=== PATIENT | male | born 1940 | race African-American/Black ===

== ENCOUNTER 2017-01-23 12:31 | Inpatient (IN) | payer BC ==
--- NOTE | ~2017-01-23 | DS ---
Discharge Summary [facility] [address] [place]. [address] NAME: MARIO SANFORD : 40 STATUS : DIS IN PAT#: [id number] AGE: 76 ADM/REG DATE : 01/23/17 MR#: [id number] REPORT SERV DATE: 01/26/17 DICTATED BY: WILLIS WILLIS DATE: 01/25/17 REPORT STATUS : Draft TRANSCRIBED BY: MODL DATE: 01/25/17 ADMISSION DATE: 01/23/2017 DISCHARGE DATE: 01/25/2017 DISCHARGE DIAGNOSIS: 1. Acute kidney injury with hyperkalemia, present on admission, resolved. The patient does have a baseline chronic kidney disease stage 4 with baseline creatinine of 3.3. The patient's discharge creatinine is 3.0. 2. Uncontrolled diabetes with presenting blood sugar of greater than 500. The patient is newly started on insulin. 3. Prostate cancer, on Lupron. 4. History of cerebrovascular accident. CONSULTS: Nephrology. PROCEDURES: None. HOSPITAL COURSE: This is a 76-year-old gentleman who was admitted to the hospital with uncontrolled diabetes and acute kidney injury. For details, please refer to H and P by Dr. Neville. In summary, the patient was admitted and was given IV fluid resuscitation along with insulin drip for better control of his blood sugars. The patient was able to come off the insulin drip by the second day of the hospital stay. The patient's renal function also improved with IV fluid hydration. The patient presented to the hospital with a creatinine of 4.25 in which his baseline is 3.3. The patient's creatinine on discharge is 3.09. For the uncontrolled diabetes, the patient was not on any insulin prior to admission, but he was started on a long-acting insulin. Diabetic education was provided. The patient will need to follow up as an outpatient to have his diabetes and insulin regimen titrated for better control. For now for simplicity, the patient was started on just a single daily dosing of long-acting insulin. With the basal insulin alone, the patient's blood sugar was fairly well controlled in the low 200s. The patient is now being discharged home with close outpatient followup instructions. DISCHARGE MEDICATIONS: Only change is Lantus or Levemir 10 units subcu daily. Otherwise, no changes. DISPOSITION: Home. FOLLOWUP: 1. Please follow up with PCP in the next one-two weeks. 2. Please follow up with Dr. Asencio, his town manager, in the next one-two weeks. A total of 25 minutes spent in coordinating this patient's discharge. [facility] [place] [address] [place]. [address] NAME: MARIO SANFORD : 40 STATUS : DIS IN PAT#: [id number] AGE: 76 ADM/REG DATE : 01/23/17 MR#: [id number] REPORT SERV DATE: 01/26/17 DICTATED BY: WILLIS WILLIS DATE: 01/25/17 REPORT STATUS : Draft TRANSCRIBED BY: BHANU DATE: 01/25/17 Willis Willis MD / [id number] CC: MD Aman Liao M.D.
--- NOTE | ~2017-01-23 | CN ---
Consultation Report [facility] [address] [place]. [address] NAME: MARIO DODGE : 40 STATUS : ADM IN PAT#: [id number] AGE: 76 ADM/REG DATE : 01/23/17 MR#: [id number] REPORT SERV DATE: 01/24/17 DICTATED BY: DANIEL WILHELM DATE: 01/24/17 REPORT STATUS : Draft TRANSCRIBED BY: MODL DATE: 01/24/17 NEPHROLOGY CONSULTATION DATE OF CONSULTATION: 01/24/2017 REQUESTING PHYSICIAN: Dr. Law. REASON FOR CONSULT: Chronic kidney disease with acute kidney injury. HISTORY OF PRESENT ILLNESS: Mr. Dodge is a pleasant 76-year-old male with stage 4 CKD followed closely in the office of [facility] by Dr. [place] Asencio. Baseline creatinine since 09/2015 has been between 3.4 and 3.9. He was last seen in the office in 11/2016 when creatinine was 3.2. Previous imaging in 08/2015 showed no hydronephrosis with normal PVR and Doppler renal artery ultrasound in 11/2010 showed no renal artery stenosis. He does not have a dialysis access in place. He was admitted overnight in the ER with a several-week history of polyuria, polyphagia, polydipsia, and a 20-pound weight loss. He had an unsteady gait at home and sugars were over 500. His A1c was found to be 14.5%. Yesterday, BUN was 60, creatinine 4.2, potassium 5.7 in the emergency room. UA showed no protein or blood, but significant amount of glucose was noted. Interestingly, he was recently started on Lupron and another medication for his underlying prostate cancer by Urology. He denies overt uremic symptoms. PAST MEDICAL HISTORY: 1. Stage 4 CKD. Baseline creatinine 3.4 to 3.9 without proteinuria. 2. Anemia. 3. Hypertension. 4. COPD. 5. Prostate cancer, status post XRT. 6. Hyperlipidemia. 7. History of stroke. 8. History GI bleed and Na-Hinkle tear. 9. History of L4-5 fusion, 06/2011 with subsequent infection. MEDICATIONS ON ADMISSION: Amlodipine, aspirin, Lipitor, Rocaltrol, Plavix, hydralazine, multivitamin, Bystolic, Protonix, glimepiride 2 mg at bedtime, pioglitazone 30 mg at bedtime. FAMILY HISTORY: Noncontributory to present admission. SOCIAL HISTORY: He is , nonsmoker, retired, and lives in [place]. REVIEW OF SYSTEMS: Significant for events as per HPI with polyuria, polydipsia, polyphagia, weight loss, Consultation Report [place] [id number] [place]. [address] NAME: MARIO DODGE : 40 STATUS : ADM IN PAT#: [id number] AGE: 76 ADM/REG DATE : 01/23/17 MR#: [id number] REPORT SERV DATE: 01/24/17 DICTATED BY: DANIEL WILHELM DATE: 01/24/17 REPORT STATUS : Draft TRANSCRIBED BY: BHANU DATE: 01/24/17 weakness, fatigue, prostate cancer. Denies urinary outlet obstructive symptoms or OTC use of NSAIDs. PHYSICAL EXAMINATION: VITAL SIGNS: Temperature 97.5, pulse 77, respirations 20, blood pressure 145/67, 95% saturation on room air. GENERAL: He is an elderly appearing male, awake, alert, oriented, and cooperative with the exam. Appears chronically ill. Accompanied by . He is in no distress, sitting up in hospital bed. HEENT: Sclerae without icterus. Conjunctivae not injected. Oropharynx is clear. Mucous membranes are dry. No JVD. HEART: Regular rate and rhythm without rub. ABDOMEN: Soft, nontender, nondistended. Bowel sounds present throughout without rebound or guarding. EXTREMITIES: Show no edema. SKIN: Shows no rash. NEURO: Again grossly nonfocal. MUSCULOSKELETAL: Without active tenosynovitis or gout. : Deferred. There is no Hernandez catheter in place. PSYCH: Mood and affect are appropriate. LABORATORY DATA: Sodium 140, potassium 5.1, bicarb 16, anion gap 13, BUN 55, creatinine 3.6, GFR 18, calcium 8.9, albumin 3.8. Troponin and LFTs are normal. White count 5800 with 3.1% eosinophilia, hemoglobin 10.5, platelets 194,000. Chest x-ray showed no active infiltrates. CT scan of the abdomen and pelvis to be performed today without contrast. ASSESSMENT/PLAN: Mr. Dodge has chronic kidney disease, stage 4, baseline creatinine 3.4 to 3.9, now presents with acute kidney injury; azotemia; hyperkalemia; non-anion gap metabolic acidosis; poorly controlled diabetes with A1c 14.5% with weight loss; polyuria; polydipsia; and anemia. Other medical history is as outlined above. Renal function has improved with hydration. I suspect his worsened renal function was likely related to intravascular volume depletion from poorly controlled diabetes. His acidosis is likely related to worsened renal function as well. His hyperkalemia was likely related to acidosis. No overt uremic symptoms at this time. We will not plan on dialysis if renal function remains stable and at baseline. Continue IV fluids. Dose bicarb. Follow up labs this afternoon. Followup renal imaging to be performed. Family updated in room and agree with treatment plan. Continue supportive care. Watch labs. Avoid nephrotoxic medications. We will follow closely with you. Appreciate consult. Consultation Report [address] [place]. [address] NAME: MARIO DODGE : 40 STATUS : ADM IN PAT#: [id number] AGE: 76 ADM/REG DATE : 01/23/17 MR#: [id number] REPORT SERV DATE: 01/24/17 DICTATED BY: DANIEL WILHELM DATE: 01/24/17 REPORT STATUS : Draft TRANSCRIBED BY: MODRivera DATE: 01/24/17 LAURA/BHANU Daniel Wilhelm M.D. / [id number] CC: MD Aman Liao M.D. Stuart G Ginther, M.D.
--- NOTE | ~2017-01-23 | HP ---
History And Physical [place] [id number] [place]. [address] NAME: MARIO SANFORD : 40 STATUS : ADM IN PAT#: [id number] AGE: 76 ADM/REG DATE : 01/23/17 MR#: [id number] REPORT SERV DATE: 01/24/17 DICTATED BY: SHERIE TANG DATE: 01/24/17 REPORT STATUS : Draft TRANSCRIBED BY: MODL DATE: 01/24/17 DATE OF ADMISSION: 01/23/2017 CHIEF COMPLAINT: A 76-year-old male presenting with increasingly poor control of his diabetes and now lightheadedness and weakness. HISTORY OF PRESENT ILLNESS: The patient's history was obtained through careful interview with patient, , coupled with review of [facility] medical records. The patient about three months ago states he was started on Lupron and some other therapy for underlying prostate cancer (followed by Dr. Poon). Ever since that time, he has noticed that he has had worsening control of his blood sugars and he claims his diabetes often registers with blood sugars ranging from the 200s to 400s and then finally today he had a blood sugar of 569. Over that period of time, he has developed polyuria, polydipsia, a dry mouth, decreased appetite, but no weight loss. He has had lightheadedness, orthostatic symptoms, and he states "I wobble" when he walks. 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 He has chronic sinusitis issues. He has intermittent abdominal discomfort over the last several months in his lower quadrants of "sticking" quality, 6/10 severity. He has also had a recent headache, a dullness in the middle of his forehead, about 4/10 severity that has now resolved. No shortness of breath. No chest pain. No nausea or vomiting. No diarrhea. REVIEW OF SYSTEMS: Otherwise, a 14-point review of systems was obtained and was negative. PAST MEDICAL HISTORY: 1. 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 2. Chronic kidney disease stage 4. Baseline creatinine of 2.6 to 3.3, seen by Dr. Asencio. 3. Diabetes. Hemoglobin A1c of 10.3 in November 2016. 4. Prostate cancer, on Lupron and some other kind of therapy, seen by Dr. Poon. 5. GI bleed with esophageal dilatation, Na-Hinkle tear, seen by Dr. Vinay Castro. 6. Benign prostatic hypertrophy. 7. Hypertension. 8. A Pseudomonas lumbar spine abscess postoperatively in 2010. History And Physical [address] [address] NAME: MARIO SANFORD : 40 STATUS : ADM IN [facility]#: [id number] AGE: 76 ADM/REG DATE : 01/23/17 MR#: [id number] REPORT SERV DATE: 01/24/17 DICTATED BY: SHERIE TANG DATE: 01/24/17 REPORT STATUS : Draft TRANSCRIBED BY: MODL DATE: 01/24/17 9. Dysconjugate gaze and retinal problems. 10.No cardiac disease. No lung disease. PAST SURGICAL HISTORY: Lumbar spine surgery. ALLERGIES: HYDROCODONE. SOCIAL HISTORY: Quit smoking more than 30 years ago. No alcohol abuse. He is . Has two children. He is a retired dry wall installations mechanic working with the [employer] FAMILY HISTORY: Mother with lymphoma. Father with stroke. A strong family history of diabetes. CURRENT MEDICATIONS: Include Norvasc 10 mg p.o. daily, aspirin 81 mg p.o. daily, Lipitor 20 mg p.o. daily, vitamin D, Plavix 75 mg p.o. daily, eyedrops, hydralazine 25 mg p.o. daily, milk of magnesia as needed, multivitamin daily, Bystolic 5 mg p.o. daily, Protonix 40 mg p.o. daily, and pioglitazone/glimepiride 30/2 mg tablet at bedtime. PHYSICAL EXAMINATION: VITAL SIGNS: Temperature 97.8, pulse 82, blood pressure 141/65, respiratory rate 14, and O2 saturation 95% on room air. GENERAL: A pleasant cooperative male. He describes no particular distress, but he appears chronically ill. HEENT: Pupils really do not respond well on examination. I do not appreciate any conjunctival pallor. Nares are patent. Oropharynx is clear of obstruction. Dry mucous membranes. NECK: Trachea midline. No thyromegaly. LYMPH: No cervical lymphadenopathy. No supraclavicular lymphadenopathy. RESPIRATORY: Clear to auscultation at bases. No wheezes, rales, or rhonchi. Normal respiratory effort. CARDIOVASCULAR: Regular rate and rhythm. No murmurs, rubs, or gallops are appreciated. The patient has chronic mild symmetrical edema of the lower extremities. ABDOMEN: Soft, nontender, nondistended. Normal bowel sounds auscultated throughout. No hepatosplenomegaly. DERMATOLOGIC: Warm and dry extremities. No pallor. No cyanosis. PSYCHIATRIC: Normal affect. Good mood. Alert and oriented x3. LABORATORY DATA: White blood cell count 5.8, hemoglobin 11, hematocrit 34, and platelets 191. Sodium 131, potassium 5.7, chloride 101, bicarb 20, BUN 60, creatinine 4.25, glucose 470. Troponin negative. INR 1.0. Liver enzymes within normal limits. Urinalysis negative for infection. STUDIES: 1. Chest x-ray by my own evaluation shows no acute cardiopulmonary process. 2. EKG by my own evaluation shows sinus rhythm. There is a significant peaking of the T- waves in leads V2 through V6. History And Physical [address] [address] NAME: MARIO SANFORD : 40 STATUS : ADM IN [facility]#: [id number] AGE: 76 ADM/REG DATE : 01/23/17 MR#: [id number] REPORT SERV DATE: 01/24/17 DICTATED BY: SHERIE TANG DATE: 01/24/17 REPORT STATUS : Draft TRANSCRIBED BY: BHANU DATE: 01/24/17 ASSESSMENT AND PLAN: 1. Acute kidney injury with hyperkalemia. Place on IV fluids, insulin drip IV, IV bicarb. Noted that the patient has a baseline chronic kidney disease, stage IV. We would like Dr. Asencio, tool polishing machine operator, to consult. 2. Uncontrolled diabetes. Check hemoglobin A1c. Place on insulin drip. diabetes educator consult. 3. Prostate cancer, on Lupron. I would like to check a CT scan of the abdomen in light of patient's worsening kidney function. Check ionized calcium. 4. Late effects of stroke. [facility] Sherie Tang M.D. / [id number] CC: MD Aman Liao M.D. David Sahaj, M.D. Stuart G Ginther, M.D.
[~2017-01-23 12:31] MED LIST: ACET500CAP PO; ACTOS15 PO; ACTOS45 PO; ALLEGRA180 PO; ALPHAGAN P0.1 % OPH; BUM1 PO; BYSTOLIC5 MG PO; CADUET10 MG/20 M PO; CICLOPIROX0.771 EX; CIP5 PO; CLEOCIN300 MG PO; DITRO5 PO; DURICEF PO; ENDOCET1 TAB PO; HYT2 PO; LIPITOR10 PO; LIPITOR20 PO; LORTAB 5 PO; LOTREL1 CA4 PO; LYRICA50 PO; MAGOX4 PO; METANX PO; METHOC750B PO; MULTIPLE VIT PO; MULTIVITAMI1 PO; NORV10 PO; OXYCON10 PO; PLAVIX PO; PROTONIX PO; ZANTAC 75 PO
[2017-01-23 16:48] LABS: BASOPHILS 0.2 %; BASOPHILS ABSOLUTE 0.01 10/3/uL (0.0-0.16); EOSINOPHILS 1.7 %; ER CBC TAT 0 Hrs 05 Mins; HEMATOCRIT 34.2 % (40.0-51.0); HEMOGLOBIN 11.5 g/dL (13.6-17.8); IMMATURE GRANULOCYTES 0.2 %; IMMATURE GRANULOCYTES ABSOLUTE 0.01 10/3/uL (0.0-0.11); LYMPHOCYTES ABSOLUTE 2.08 10/3/uL (0.67-4.30); MANUAL DIFF NO %; MEAN CORPUS HGB CONC 33.6 g/dL (32.0-36.0); MEAN CORPUSCULAR VOLUME 89.3 fL (80-100); MEAN PLATELET VOLUME 10.9 fL (9.2-13.0); MONOCYTES 6.7 %; MONOCYTES ABSOLUTE 0.39 10/3/uL (0.21-1.20); NEUTROPHILS 55.2 %; NEUTROPHILS ABSOLUTE 3.19 10/3/uL (2.02-8.40); PLATELET COUNT 191 10/3/uL (150-400); RBC DISTRIBUTION WIDTH 13.9 % (12.0-16.0); RED CELL COUNT 3.83 10/6/uL (4.7-6.1); WHITE BLOOD CELLS 5.8 10/3/uL (4.5-10.5)
[2017-01-23 16:50] LABS: ASCORBIC ACID (UR NOT ORDER) NEG (NEG); BILIRUBIN, URINE NEGATIVE (NEG); ER URINALYSIS TAT 0 Hrs 07 Mins; KETONE, URINE NEGATIVE (NEG); LEUKOCYTE ESTERASE(NOT OR NEG (NEG); NITRITE (URINE) NEG (NEG); WBC (NOT ORDERED) (RFLEX) < 1 (0-5)
[2017-01-23 16:56] LABS: PROTIME (NOT ORD) 13.4 SEC (12.0-14.5)
[2017-01-23 16:57] LABS: PARTIAL THROMBO TIME 32.6 SEC (22.5-37.2)
[2017-01-23 17:04] LABS: ALBUMIN 3.8 G/DL (3.5-5.0); CALCIUM, SERUM 9.5 MG/DL (8.5-10.4); CHEST PAIN PROFILE TAT 0 Hrs 21 Mins; CHLORIDE, SERUM 101 MMOL/L (96-112); CO2 (CARBON DIOXIDE) 20 MMOL/L (24-34); POTASSIUM, SERUM 5.7 MMOL/L (3.5-5.3); SGPT(ALT) 35 U/L (5-65); TOTAL BILIRUBIN 0.6 MG/DL (0-1.2); TOTAL PROTEIN 7.8 G/DL (6.0-8.5); TROPONIN I <0.02 NG/ML (<0.05)
[2017-01-23 17:07] LABS: ALKALINE PHOSPHATASE 103 U/L (45-117); BUN (BLOOD UREA NITROGEN) 60 MG/DL (6-23); CREATININE 4.25 MG/DL (0.70-1.30); DIRECT BILIRUBIN < 0.1 MG/DL (0.0-0.4); GFR AFRICAN AMERICAN 15 ML/MIN (>=60); GFR NON AFRICAN AMERICAN 13 ML/MIN (>=60); GLUCOSE, SERUM 470 MG/DL (60-99); INDIRECT BILIRUBIN(NOT ORDER) 0.5 MG/DL (0.1-0.9); SGOT(AST) 25 U/L (5-40); SODIUM, SERUM 131 MMOL/L (135-148)
[2017-01-23] MEDS ORDERED: LIPITOR20 PO (18:17)
[2017-01-23] MEDS ORDERED: NORV10 PO (18:17)
[2017-01-23] MEDS ORDERED: PROTONIX PO (18:17)
[2017-01-23] MEDS ORDERED: PLAVIX PO (18:18)
[2017-01-23] MEDS ORDERED: BYSTOLIC5 MG PO (18:18)
[2017-01-23] MEDS ORDERED: ROCALTROL 0.0.25 MCG PO (18:18)
[2017-01-23] MEDS ORDERED: APRES25 PO (18:18)
[2017-01-23] MEDS ORDERED: PIOGLITAZONE PO (18:19)
[2017-01-23] MEDS ORDERED: GLIMEPIRIDE PO (18:19)
[2017-01-23] MEDS ORDERED: TRUSOPT2 % OPH (18:20)
[2017-01-23] MEDS ORDERED: HALF81 PO (18:20)
[2017-01-23] MEDS ORDERED: THERGRANM PO (18:20)
[2017-01-23] MEDS ORDERED: MOMUD PO (18:20)
[2017-01-23] MEDS ORDERED: TRAVATAN OPH (18:21)
[2017-01-24 05:26] LABS: CALCIUM IONIZED 5.44 MG/DL (3.80-4.80)
[2017-01-24 05:32] LABS: BASOPHILS 0.3 %; BASOPHILS ABSOLUTE 0.02 10/3/uL (0.0-0.16); EOSINOPHILS 3.1 %; EOSINOPHILS ABSOLUTE 0.18 10/3/uL (0.0-0.53); HEMATOCRIT 30.8 % (40.0-51.0); HEMOGLOBIN 10.5 g/dL (13.6-17.8); IMMATURE GRANULOCYTES 0.2 %; IMMATURE GRANULOCYTES ABSOLUTE 0.01 10/3/uL (0.0-0.11); LYMPHOCYTES 37.2 %; LYMPHOCYTES ABSOLUTE 2.14 10/3/uL (0.67-4.30); MEAN CORPUS HGB CONC 34.1 g/dL (32.0-36.0); MEAN PLATELET VOLUME 10.8 fL (9.2-13.0); MONOCYTES 9.5 %; MONOCYTES ABSOLUTE 0.55 10/3/uL (0.21-1.20); NEUTROPHILS 49.7 %; NEUTROPHILS ABSOLUTE 2.86 10/3/uL (2.02-8.40); PLATELET COUNT 194 10/3/uL (150-400); WHITE BLOOD CELLS 5.8 10/3/uL (4.5-10.5)
[2017-01-24 05:34] LABS: INTERNATIONAL NORMAL RATI 1.1 UNITS (-); PARTIAL THROMBO TIME 32.1 SEC (22.5-37.2); PROTIME (NOT ORD) 14.2 SEC (12.0-14.5)
[2017-01-24 05:38] LABS: MANUAL DIFF NO %
[2017-01-24 07:08] LABS: ALBUMIN 3.3 G/DL (3.5-5.0); ALKALINE PHOSPHATASE 89 U/L (45-117); BUN (BLOOD UREA NITROGEN) 55 MG/DL (6-23); CALCIUM, SERUM 8.9 MG/DL (8.5-10.4); CHLORIDE, SERUM 111 MMOL/L (96-112); CO2 (CARBON DIOXIDE) 16 MMOL/L (24-34); CREATININE 3.62 MG/DL (0.70-1.30); GFR AFRICAN AMERICAN 18 ML/MIN (>=60); GFR NON AFRICAN AMERICAN 15 ML/MIN (>=60); GLOBULIN 3.3 G/DL (2.5-4.1); GLUCOSE, SERUM 141 MG/DL (60-99); POTASSIUM, SERUM 5.1 MMOL/L (3.5-5.3); SGOT(AST) 28 U/L (5-40); SGPT(ALT) 32 U/L (5-65); SODIUM, SERUM 140 MMOL/L (135-148); TOTAL BILIRUBIN 0.4 MG/DL (0-1.2); TOTAL PROTEIN 6.6 G/DL (6.0-8.5)
[2017-01-24 07:09] LABS: PROSTATIC SPECIFIC AG 0.12 NG/ML (0.0-6.5)
[2017-01-24 08:06] LABS: GLYCOHEMOGLOBIN (HbA1c) 14.5 % (4.7-6.1)
[2017-01-24 15:22] LABS: CALCIUM, SERUM 9.1 MG/DL (8.5-10.4); CHLORIDE, SERUM 108 MMOL/L (96-112); CREATININE 3.45 MG/DL (0.70-1.30); GFR AFRICAN AMERICAN 19 ML/MIN (>=60); GFR NON AFRICAN AMERICAN 16 ML/MIN (>=60); SODIUM, SERUM 140 MMOL/L (135-148)
[2017-01-24 15:23] LABS: BUN (BLOOD UREA NITROGEN) 49 MG/DL (6-23); CO2 (CARBON DIOXIDE) 23 MMOL/L (24-34); GLUCOSE, SERUM 236 MG/DL (60-99)
[2017-01-25 06:24] LABS: ALBUMIN 3.1 G/DL (3.5-5.0); BUN (BLOOD UREA NITROGEN) 46 MG/DL (6-23); CALCIUM, SERUM 8.7 MG/DL (8.5-10.4); CHLORIDE, SERUM 109 MMOL/L (96-112); CO2 (CARBON DIOXIDE) 22 MMOL/L (24-34); CREATININE 3.09 MG/DL (0.70-1.30); GFR AFRICAN AMERICAN 22 ML/MIN (>=60); GFR NON AFRICAN AMERICAN 19 ML/MIN (>=60); GLUCOSE, SERUM 252 MG/DL (60-99); PHOSPHORUS, SERUM 3.1 MG/DL (2.5-4.5); SODIUM, SERUM 142 MMOL/L (135-148)
[2017-01-25 06:28] LABS: POTASSIUM, SERUM 4.6 MMOL/L (3.5-5.3)
[2017-01-25] MEDS ORDERED: LEVEMFLXPN SQ (09:41)
[2017-01-25] MEDS ORDERED: SODBICAR10 PO ×2 (12:43→13:05)
== END 2017-01-25 12:45 | disposition home or self-care (01) | DRG 638 ==
LOC: ER 12:31 → 6NO 21:21
PROVIDERS: Emergency Medicine; Hospitalist; Internal Medicine Nephrology
DX: E11.65 Type 2 diabetes mellitus with hyperglycemia (principal); N17.9 Acute kidney failure, unspecified; E87.2 Acidosis; N18.4 Chronic kidney disease, stage 4 (severe); E87.5 Hyperkalemia; I12.9 Hypertensive chronic kidney disease with stage 1 through stage 4 chronic kidney disease, or unspecified chronic kidney disease; E11.22 Type 2 diabetes mellitus with diabetic chronic kidney disease; C61 Malignant neoplasm of prostate; N40.0 Benign prostatic hyperplasia without lower urinary tract symptoms; Z87.891 Personal history of nicotine dependence; Z88.5 Allergy status to narcotic agent; Z82.3 Family history of stroke; Z80.7 Family history of other malignant neoplasms of lymphoid, hematopoietic and related tissues; Z92.3 Personal history of irradiation; Z86.73 Personal history of transient ischemic attack (TIA), and cerebral infarction without residual deficits; Z98.1 Arthrodesis status; Z79.02 Long term (current) use of antithrombotics/antiplatelets; Z79.84 Long term (current) use of oral hypoglycemic drugs
CPT/HCPCS: 71010; 71020; 80048; 80053; 80069; 80076; 81001; 82330; 82962; 83036; 83735; 84132; 84153; 84300; 84484; 85025; 85610; 85730; 93005; 96374; 96376; 99291; A9270-GY; J0610